=== PATIENT | female | born 1990 | race Caucasian/White ===

== ENCOUNTER 2020-07-08 13:59 | Emergency (ER) | payer BC, SELFPAY ==
[2020-07-08 14:04] VITALS: BP 121/75; PULSE 92; RESP 18; TEMP 36.5; O2SAT 98; BMI 21.2
--- NOTE | 2020-07-08 14:08 | ED_ITS ---
HPI - Skin/Abscess/Foreign Bdy General: Chief complaint: Skin/Abscess/Foreign Body Stated complaint: Cyst/Poss Abscess Time Seen by Provider: 07/08/20 14:01 Source: patient Mode of arrival: ambulatory Limitations: no limitations History of Present Illness: HPI narrative: 30-year-old female states she had an abscess to her pelvis over the last 4 to 5 days. States it is quite painful. She states she popped it earlier this week and did have some drainage with pain is increased today and she had more redness. Denies any fever. States it is worse with palpation and improved with rest. Denies any history of abscesses in the past. Associated symptoms: Deny chills, fever(s), nausea or vomiting Review of Systems Const: Denies: fever(s), chills, body aches or change in appetite Eyes: Denies: blurry vision or eye discomfort ENMT: Denies: throat pain or dental pain Card: Denies: chest pain Resp: Denies: dyspnea GI: Denies: abdominal pain, nausea, vomiting or diarrhea : Denies: dysuria Musc: Denies: neck pain or back pain Skin/Breast: Denies: rash Neuro: Denies: headache(s) Psych: Denies: depression Myke/Lymph: Denies: easy bruising All/Imm: Denies: urticaria Physical Exam Const: COMMON NORMALS: no acute distress, patient oriented x3 and healthy a ppearing HENMT: COMMON NORMALS: normocephalic and atraumatic HEAD & SCALP: normocephalic and atraumatic Eye: COMMON NORMALS: Equal, round and reactive pupils present and EOMs intact bilaterally PUPIL: Yes Equal, round and reactive pupils present Neck/C-Spine: COMMON NORMALS: full ROM and supple Chest: COMMONS NORMALS: normal inspection of the chest and normal palpation of entire chest wall Resp: COMMON NORMALS: normal respiratory effort, No retractions, No use of accessory muscles and clear to auscultation bilaterally AUSCULTATION: clear to auscultation bilaterally Cardio: COMMON NORMALS: regular rate, regular rhythm and No murmurs present (Cardio) RATE: regular rate RHYTHM: regular rhythm GI: COMMON NORMALS: Normal to inspection, nondistended, normoactive bowel sounds present, Soft to palpation, non-tender and no masses PALPATION: Yes Soft to palpation Extremity: COMMON NORMALS: normal to inspection and full ROM Neuro: COMMON NORMALS: patient oriented x3, moves all extremities and no focal motor deficits Psych: COMMON NORMALS: mental status grossly normal, Normal thought process present and cooperative THOUGHT PROCESS: Normal thought process present Skin: COMMON NORMALS: no wounds NARRATIVE SKIN EXAM: 2 cm abscess to lower pelvis no drainage at this time Procedures Abscess I/D Site: abdomen Local Anesthetic: lidocaine 1% Amount of anesthesia used (mL): 10 Technique: incised with #11 blade Packing used?: none Course Vital Signs: Vital signs: Vital Signs Temperature 97.7 F 07/08/20 14:04 Pulse Rate 92 07/08/20 14:04 Respiratory Rate 18 07/08/20 14:04 Blood Pressure 121/75 07/08/20 14:04 Pulse Oximetry 98 07/08/20 14:04 MDM - Skin/Abscess/Foreign Bdy MDM Narrative: Medical decision making narrative: Karley presents here with an abscess. Abscess was incised and drained. She was already on Bactrim. She is to follow-up with PCP and return to ER if worsening. She understands agrees to plan. Discharge Plan Discharge Patient Disposition: Home Clinical Impression: Abscess of skin or subcutaneous tissue Qualifiers: Site of cutaneous abscess: unspecified site Qualified Code(s): L02.91 - Cutaneous abscess, unspecified Condition: Stable Prescriptions: New ondansetron 4 mg tablet,disintegrating 4 mg PO Q6H PRN (Reason: nausea and vomiting) Qty: 14 RF: 0 Discharge Orders: Discharge ED (Routine); Ordered 07/08/20 Ordered By: Rain Garcia Discharge Diet: Advance as tolerated Discharge Activity: Resume usual activity Patient Instructions: Abscess Incision and Drainage (ED) Coding Level of Care Code 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
[2020-07-08] MEDS: HYDROcodone-acetaminophen 7.5-325 mg Tablet 1 TAB PO (14:27)
[2020-07-08 14:40] VITALS: BP 123/63; PULSE 87; RESP 16; O2SAT 100
== END 2020-07-08 14:40 | disposition home or self-care (01) ==
PROVIDERS: Emergency Provider Emergency Medicine
DX: L02.818 Cutaneous abscess of other sites (principal)
CPT/HCPCS: 10060; 12345; 99281; 99283

== ENCOUNTER 2022-02-19 12:26 | Outpatient (CLI) | payer BC, SELFPAY ==
--- NOTE | 2022-02-19 12:39 | XR_ITS ---
WS: [id number] Exam: XR wrist RT 2V [id number] Date/Time of Exam: 02/19/2022 12:45 PM Reason For Exam: R WRIST PAIN No fracture or dislocation. Normal soft tissues. Articular relationships appear normal. XR/XR wrist RT 2V [id number] IMPRESSION: 1. Negative right wrist.
--- NOTE | 2022-02-19 12:39 | XR_ITS ---
WS: [id number] Exam: XR hip BI m 5V wo/w pel* [id number] Date/Time of Exam: 02/19/2022 12:45 PM Reason For Exam: PELVIC PAIN Right hip. There is flattening and deformity of the femoral head and shortening of the femoral neck s uggesting healed Lsue-Wldgy-Lxaesiv disease. The joint compartments relatively well maintained. Fabiola l soft tissues. XR/XR hip BI m 5V wo/w pel* [id number] IMPRESSION: 1. 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 Left hip no fracture or dislocation. The joint compartments well maintained. No rmal soft tissues. An opaque density is seen in the central pelvic area apparen tly representing a menstrual cup. IMPRESSION: 1. Normal left hip.
== END 2022-02-19 12:27 | disposition home or self-care (01) ==
PROVIDERS: PCP Nurse Practitioner Family; Visit Provider Nurse Practitioner Family
DX: R10.2 Pelvic and perineal pain (principal); M25.531 Pain in right wrist
CPT/HCPCS: 73100; 73523